=== PATIENT | male | born 1995 | race Caucasian/White ===

== ENCOUNTER 2018-05-20 10:44 | Day surgery (SDC) | payer OTHER ==
[2018-05-19 10:36] LABS: Absolute Lymphocytes (CBC) 1.6 K/uL (0.7-4.9); Absolute Monocytes 0.4 K/uL (0.1-1.3); Absolute Neutrophil 3.8 K/uL (1.8-8.0); Basophils % 0.7 % (0-1.3); Eosinophils % 2.8 % (0-4.4); Hematocrit 45.4 % (39.6-49.0); MCH 30.7 pg (27.0-35.0); MCV 87.6 fL (80-100); MPV 9.3 fL (7.6-11.3); Monocytes % 6.8 % (3.3-12.3); RBC Red Blood Cell Count 5.18 M/uL (4.33-5.43)
[2018-05-19 10:48] LABS: BUN Blood Urea Nitrogen 15 mg/dL (7-18); Bicarbonate 28 mmol/L (21-32); Glucose Level 102 mg/dL (74-106); Potassium 4.1 mmol/L (3.5-5.1); Sodium Level 143 mmol/L (136-145)
[~2018-05-20 10:44] MED LIST: FENTANYL CITR 100 MCG/2 ML ONE; LIDOCAINE 2% MPF 5 ML VIAL ONE; MIDAZOLAM HCL 2 MG/2 ML INJ ONE; PROPOFOL 200 MG/20 ML VIAL IV ONE
[2018-05-20] MEDS ORDERED: CEFAZOLIN/SWI 1gm 1 GM/10 ML SYR ONE (10:46)
[2018-05-20] MEDS: Ringers Lactate 1,000 ML IV ONE (10:54)
[2018-05-20] MEDS ORDERED: LIDOCAINE 1% MPF 2 ML AMPULE ONE (11:03)
[2018-05-20] MEDS ORDERED: MIDAZOLAM HCL 2 MG/2 ML INJ ONE (11:38)
[2018-05-20] MEDS ORDERED: MEPERIDINE HCL 25 MG/0.5 ML ONE (11:39)
[2018-05-20] MEDS ORDERED: KETOROLAC 30 MG/ML INJ ONE (11:41)
--- NOTE | 2018-05-20 11:41 | P.BOP ---
Preoperative diagnosis: right inner thigh subcutanous infected mass Postoperative diagnosis: same Primary procedure: Excisional biopsy of anterior 1x1cm and posterior 3x3cm subQ mass Estimated blood loss: <10cc Specimen: mass Findings: two masses instead of one near eech other but requiring two incisions Anesthesia: General Complications: None Transferred to: Recovery Room Condition: Good
== END 2018-05-20 13:50 | disposition home or self-care (01) ==
LOC: OR 10:44
PROVIDERS: ATTEND Surgery
PROC: 0JBL0ZZ Excision of Right Upper Leg Subcutaneous Tissue and Fascia, Open Approach (ICD-10-PCS; 2018-05-20)
PROC: 0JBL0ZZ Excision of Right Upper Leg Subcutaneous Tissue and Fascia, Open Approach (ICD-10-PCS; principal; 2018-05-20 12:30)
DX: L72.0 Epidermal cyst (principal); F17.200 Nicotine dependence, unspecified, uncomplicated
CPT/HCPCS: 36415; 80048; 85025; 88304; 88305; J0690; J2001; J2175; J2250; J3010